=== PATIENT | female | born 1995 | race Caucasian/White ===

== ENCOUNTER 2020-03-27 08:49 | Outpatient (REF) | payer OTHER, SELFPAY | END 2020-03-27 08:50 | disposition home or self-care (01) | LOC: HO.LAB 08:49 | PROVIDERS: Visit Provider Internal Medicine | DX: Z20.828 Contact with and (suspected) exposure to other viral communicable diseases (principal) | CPT/HCPCS: C9803; U0003 ==

== ENCOUNTER 2021-03-26 10:27 | Outpatient (REF) | payer OTHER, SELFPAY | END 2021-03-26 10:28 | disposition home or self-care (01) | LOC: HO.LAB 10:27 | PROVIDERS: Visit Provider Internal Medicine | DX: Z20.822 Contact with and (suspected) exposure to COVID-19 (principal) | CPT/HCPCS: C9803; U0003; U0005 ==

== ENCOUNTER 2022-12-28 16:04 | Emergency (ER) | payer OTHER, SELFPAY ==
[2022-12-28 16:17] VITALS: BP 119/72; PULSE 73; RESP 17; TEMP 37.1; O2SAT 97; BMI 23.8
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
[2022-12-28 16:46] LABS: MANUAL DIFF FLAG NO
[2022-12-28 16:47] LABS: Basophils Absolute Auto 0.1 X10*3/uL (0.0-0.2); Basophils Percent Auto 0.6 % (0-2); Eosinophils Absolute Auto 0.1 X10*3/uL (0.0-0.4); Eosinophils Percent Auto 1.1 % (0-4); Hematocrit 42.6 % (37.0-47.0); Hemoglobin 14.7 g/dl (12.0-16.0); Imm Gran Abs Auto 0.04 X10*3/uL (0.00-0.03); Imm Gran Pct Auto 0.3 % (0.0-0.4); Lymphocytes Absolute Auto 1.8 X10*3/uL (1.2-4.9); Lymphocytes Percent Auto 14.1 % (20-40); Mean Corpuscular HGB Conc 34.5 g/dl (31.0-35.0); Mean Corpuscular Hemoglobin 31.8 pg (27.0-33.0); Mean Corpuscular Volume 92.2 fL (80.0-98.0); Mean Platelet Volume 9.4 fL (9.4-12.3); Monocytes Absolute Auto 0.8 X10*3/uL (0.1-1.2); Monocytes Percent Auto 6.5 % (2-11); Neutrophils Absolute Auto 9.6 x10*3/uL (2.0-8.3); Neutrophils Percent Auto 77.4 % (45-73); Platelet Count 251 X10*3/uL (160-400); Red Blood Count 4.62 X10*6/uL (4.20-5.50); Red Cell Distribution Width 11.9 % (11.0-16.0); White Blood Count 12.4 X10*3/uL (4.8-10.8)
[2022-12-28 17:00] LABS: COVID-19 Test Negative (Negative); IDNOW Serial# 08D9AD1C
[2022-12-28 17:10] LABS: UPreg QC Valid YES; Urine Pregnancy NEGATIVE (NEGATIVE)
[2022-12-28 17:12] LABS: Appearance Urine Cloudy; Color Urine Yellow; Glucose Urine UA Negative (Negative); Leukocyte Esterase Urine Small (1+) (Negative); Nitrite Urine Negative (Negative); PH 7.5 (5.0-9.0); Specific Gravity - Urine 1.025 (1.005-1.025); UMIC TRIGGER UACC YES; Urine Blood Negative (Negative); Urine Ketones Negative (Negative); Urine Protein 30 (1+) mg/dL (Neg-Trace)
[2022-12-28 17:14] LABS: Bacteria Urine 4+ (None Seen); Hyaline Casts Urine 0-2 /LPF (0-2); Squamous Epithelial Cell Urine >20 /HPF (0-2); UACC Culture Trigger YES
[2022-12-28 17:27] LABS: Alanine Aminotransferase 12 U/L (0-31); Albumin Level 4.6 g/dL (3.5-5.0); Alkaline Phosphatase 51 U/L (39-117); Anion Gap 13 (12-20); Aspartate Amino Transferase 20 U/L (5-31); Bilirubin Direct 0.4 mg/dL (0.0-0.5); Bilirubin Total 1.1 mg/dL (0.0-1.0); Blood Urea Nitrogen 11 mg/dL (9-16); Calcium 9.4 mg/dL (8.4-10.2); Carbon Dioxide 22 mmol/L (22-29); Chloride 108 mmol/L (96-108); Creatinine Clr Calc Pharmacy 92.7; Estimated Glomerular Filt Rate > 60; Glucose Random 91 mg/dL (60-115); Magnesium 2.3 mg/dL (1.6-2.6); Potassium 4.3 mmol/L (3.3-5.1); Sodium 139 mmol/L (135-145)
[2022-12-28 17:36] LABS: Amphetamine Screen Urine Not Detected (Not Detect); Barbiturates, Urine Not Detected (Not Detect); Benzodiazepines Screen Urine Not Detected (Not Detect); Cannabinoid Screen Urine POSITIVE (Not Detect); Cocaine Screen Urine Not Detected (Not Detect); Opiate Screen Urine Not Detected (Not Detect); Phencyclidine Screen Urine Not Detected (Not Detect)
[2022-12-28] MEDS: ondansetron HCL 4 MG/2 ML VIAL IVPUSH (17:55)
[2022-12-28] MEDS: 0.9 % Sodium Chloride 1,000 ML 999 ML IV (17:55)
[2022-12-29 12:57] LABS: Fentanyl, urine SEE COMMENTS (Not Detect)
[2023-01-08 12:46] LABS: Norfentanyl, Ur NEGATIVE
[2023-01-17 12:30] LABS: Fentanyl, Ur NEGATIVE
== END 2022-12-28 18:46 | disposition home or self-care (01) ==
PROVIDERS: Nurse Practitioner Family; Emergency Provider Emergency Medicine
DX: Z02.83 Encounter for blood-alcohol and blood-drug test (principal); R78.89 Finding of other specified substances, not normally found in blood; Z20.822 Contact with and (suspected) exposure to COVID-19
CPT/HCPCS: 80048; 80076; 80307; 80354; 81001; 81025; 83735; 85025; 87086; 87635; 96374; 99284; J2405